=== PATIENT | female | born 1955 | race Caucasian/White ===

== ENCOUNTER 2019-04-14 10:32 | Inpatient (IN) | payer OTHER, BC ==
[2019-04-14] MEDS ORDERED: AZITHROMYCIN 500 MG TABLET PO ONE (10:52)
[2019-04-14] MEDS ORDERED: ALBUTEROL (0.5% CONCENTRATED) 2.5 MG/0.5 ML VIAL.NEB INH ONE ×2 (10:52→12:11)
[2019-04-14] MEDS ORDERED: METHYLPREDNISOLONE PF 125MG/VIAL IVP ONE (10:52)
--- NOTE | 2019-04-14 10:56 | Emergency Department Record ---
History of Present Illness - General Chief Complaint: Shortness of breath Stated Complaint: RESPIRATORY ISSUES, ASTHMA Time Seen by Provider: 04/14/19 10:47 Source: Patient, Family Mode of Arrival: Ambulatory Limitations: No limitations - History of Present Illness Initial Comments: 63 yo female presents with cough, wheezing, shortness of breath, fevers and productive sputum. The onset was about 2 weeks ago. She traveled to [place] during this duration. No leg pain or swelling. The sputum is yellow. She has seen some streaks of blood at times. The last fever was 2 days ago. She is an asthmatic. She completed steroids on the . She is not a smoker. She had diarrhea for two days that resolved. No chest pain. MD Complaint: "Asthma attack", Cough, Shortness of breath Onset/Timin -: Days(s) Radiation: Other Quality: Other Consistency: Constant Improves With: Nothing Worsens With: Nothing Known History Of: Asthma Context: Recent URI, Recent travel Associated Symptoms: Orthopnia, Sputum production Treatments Prior to Arrival: None - Related Data Home Medications Medication Instructions Recorded Confirmed Last Taken Albuterol Sulfate [Proair Hfa] 1 - 2 puff IH .EVERY 4-6 HOURS PRN 04/14/19 04/14/19 04/14/19 Aspirin [Aspir-Low] 81 mg PO DAILY 04/14/19 04/14/19 04/14/19 Cholecalciferol (Vitamin D3) 2,000 unit PO DAILY 04/14/19 04/14/19 04/14/19 [Vitamin D3] Magnesium Oxide [Magnesium] 750 mg PO DAILY 04/14/19 04/14/19 04/14/19 Allergies Allergy/AdvReac Type Severity Reaction Status Date / Time No Known Drug Allergies Allergy Verified 12/14/15 06:27 Travel Screening - Travel/Exposure Within Last 30 Days Have you traveled within the last 30 days?: Yes Location Detail:: [place] - Travel/Exposure Within Last Year Have you traveled outside the [place] in the last year?: Yes Location Detail:: [place] - Travel Symptoms Symptom Screening: None Review of Systems Constitutional: Reports: Chills, Fever Eyes: Denies: Eye discharge ENT: Reports: Congestion, Throat pain Respiratory: Reports: Cough, Dyspnea, Wheezes Cardiovascular: Denies: Chest pain, Palpitations, Syncope Endocrine: Denies: Fatigue, Polydipsia, Polyuria Gastrointestinal: Reports: As per HPI, Diarrhea. Denies: Abdominal pain, Nausea, Vomiting Genitourinary: Denies: Dysuria, Urgency Musculoskeletal: Denies: Arthralgia, Back pain, Myalgia Skin: Denies: Bruising, Change in color, Rash Neurological: Denies: Headache Psychiatric: Denies: Anxiety Hematological/Lymphatic: Denies: Easy bleeding, Easy bruising Past Medical History - SOCIAL HISTORY Smoking Status: Never smoker Alcohol Use: None Drug Use: None - RESPIRATORY Hx Respiratory Disorders: Yes Hx Asthma: Yes - CARDIOVASCULAR Hx Cardio Disorders: Yes Hx Cardiac Cath: Yes (05/2015) Hx CHF: No Hx Irregular Heartbeat: Yes - NEURO Hx Neuro Disorders: No - GI Hx GI Disorders: Yes Hx Ulcer: Yes - Hx Genitourinary Disorders: Yes Hx Kidney Stones: Yes - ENDOCRINE Hx Endocrine Disorders: Yes Hx Thyroid Disease: Yes (Hypothyroid) - MUSCULOSKELETAL Hx Musculoskeletal Disorders: No - PSYCH Hx Psych Problems: No - HEMATOLOGY/ONCOLOGY Hx Hematology/Oncology Disorders: Yes Hx Cancer: Yes Hx Chemotherapy: No Hx Radiation Therapy: No Family Medical History Any Significant Family History?: No Hx Cancer: Father, Mother, Grandparents *Cancer Comment: Lung Hx Heart Disease: Father, Grandparents Hx HTN: Mother Hx Resp Disorders: Father, Mother Physical Exam - General General Appearance: Alert, Oriented x3, Cooperative, No acute distress Limitations: No limitations - Head Head exam: Atraumatic, Normal inspection - Eye Eye exam: Normal appearance, PERRL. negative: Conjunctival injection, Scleral icterus - ENT ENT exam: Normal exam, Mucous membranes moist, Normal orophraynx Ear exam: Normal external inspection Nasal Exam: Discharge Mouth exam: Normal external inspection Teeth exam: Normal inspection - Neck Neck exam: Normal inspection. negative: Lymphadenopathy - Respiratory Respiratory exam: Decreased breath sounds, Prolonged expiratory, Wheezes. negative: Normal lung sounds bilaterally, Respiratory distress, Stridor - Cardiovascular Cardiovascular Exam: Regular rate, Normal rhythm, Normal heart sounds Peripheral Pulses: 2+: Radial (R), Radial (L) - GI/Abdominal GI/Abdominal exam: Soft. negative: Tenderness - Rectal Rectal exam: Deferred - exam: Deferred - Extremities Extremities exam: Normal inspection. negative: Calf tenderness, Pedal edema, Tenderness - Back Back exam: Denies: CVA tenderness (R), CVA tenderness (L) - Neurological Neurological exam: Alert, Oriented X3 - Psychiatric Psychiatric exam: Normal affect, Normal mood - Skin Skin exam: Dry, Intact, Normal color, Warm Course Vital Signs 04/14/19 10:36 Temperature 97.8 F Pulse Rate 84 Respiratory 16 Rate Blood Pressure 123/84 Pulse Ox 95 - Reevaluation(s) Reevaluation #1: The current symptoms are consistent with acute bronchits vs pneumonia with acute exacerbation of asthma with her productive sputum and significant wheezing, and fever. She has had travel recently. PE is low suspicion based on her clinical presentation. 04/14/19 11:16 The CBC was reviewed WC is 3.8 The BMP is normal 04/14/19 12:12 The CXR demonstrated prominent perihilar interstitial changes. No effusion or infiltrate On recheck she is still diffusely wheezing Repeat nebulized treatment ordered 04/14/19 12:13 04/14/19 13:16 After the repeat nebulized treatment her wheezing persists diffusely Saturations range from upper 80's to mid 90's I recommend observation overnight for steriods, antibiotics, monitoring, and scheduled treatments. 04/14/19 13:24 The case was discussed with Sherrie Alexander MANAGER NURSING for admission Medical Decision Making - Lab Data Result diagrams: 04/14/19 10:54 04/14/19 10:54 Disposition Disposition: Admit Clinical Impression: Bronchitis, Asthma exacerbation Decision to Admit: Admit from ER Decision to Admit Date: 04/14/19 Decision to Admit Time: 13:24 Condition: (2) Stable Forms: Patient Portal Access Time of Disposition: 13:24 Quality - Quality Measures Quality Measures: N/A - Blood Pressure Screening Does Patient Have Any of the Following: No Blood Pressure Classification: Pre-Hypertensive BP Reading Systolic Measurement: 123 Diastolic Measurement: 84 Screening for High Blood Pressure: < Pre-Hypertensive BP, F/U Documented > [[id number]] Pre-Hypertensive Follow-up Interventions: Referral to alternative/primary care provider.
[2019-04-14 11:09] LABS: GRAN % 40.1 % (47-80); HEMATOCRIT 39.1 % (35.0-47.0); HEMOGLOBIN 12.2 gm/dl (11.6-16.0); MEAN CELL VOLUME 96.5 fl (81-97); MEAN CORPUSCULAR HEMOGLOBIN 30.1 pg (27-33); MEAN CORPUSCULAR HGB CONC 31.2 g/dl (32-36); MEAN PLATELET VOLUME 8.9 fl (7.4-10.4); PLATELET COUNT 226 K/uL (130-400); RED BLOOD COUNT 4.05 M/uL (3.80-5.40); RED CELL DISTRIBUTION WIDTH 15.7 % (11.5-14.5); WHITE BLOOD COUNT W/O DIFF 3.8 K/uL (4.2-12.2)
[2019-04-14 11:10] LABS: BASO % 1.1 % (0-6); EOS % 5.9 % (0-6); LYMPH % 40.4 % (16-45); MONO % 12.5 % (0-9)
[2019-04-14 11:17] LABS: INFLUENZA A NEGATIVE (NEGATIVE); INFLUENZA B NEGATIVE (NEGATIVE)
--- NOTE | 2019-04-14 12:03 | RADIOLOGY REPORT ---
EXAMINATION: Two View Chest Radiographs EXAM DATE: 04/14/2019 11:27 AM TECHNIQUE: Frontal and lateral views INDICATION: wheezing, cough COMPARISON: None ENCOUNTER: Not applicable FINDINGS: Cardiomediastinal structures unremarkable. Prominent bilateral perihilar interstitial change may be c hronic. Comparison with previous radiographs and/or follow-up study recommended. No pulmonary consoli dation. No pneumothorax or pleural effusion. IMPRESSION: Prominent bilateral perihilar interstitial change may be chronic. Comparison with previous radiograph s and/or follow-up study recommended NOTE: There is a follow-up recommendation in this report. Dictated by: Christopher Lilly MD on 04/14/2019 11:58 AM. .
[2019-04-14] MEDS ORDERED: ALBUTEROL SULFATE (0.083%) 2.5 MG/3 ML NEB INH PRN (13:47)
[2019-04-14] MEDS ORDERED: BENZONATATE 100 MG CAPSULE PO PRN (14:05)
[2019-04-14] MEDS: METHYLPREDNISOLONE PF 125MG/VIAL IVP SCH ×2 (14:38→21:21)
[2019-04-14] MEDS: CEFTRIAXONE SODIUM 1 GM in 0.9 % SODIUM CHLORIDE 100ML 100 ML IVPB SCH (14:56)
[2019-04-14] MEDS: IPRATROPIUM/ALBUTEROL (0.5MG/3MG) NEB INH SCH ×3 (14:57→22:37)
[2019-04-14] MEDS: BREO (FLUTICASONE/VILANTEROL) 200MCG/25MCG INHALER INH SCH (14:57)
[2019-04-14] MEDS: GUAIFENESIN 600 MG TABCR PO SCH (21:21)
[2019-04-14] MEDS: MONTELUKAST SODIUM 10MG TABLET PO SCH (21:21)
[2019-04-15] MEDS: GUAIFENESIN/D-METH. 10 ML UDC PO PRN ×2 (02:55→22:05)
[2019-04-15] MEDS: ACETAMINOPHEN 325 MG TAB PO PRN (02:55)
[2019-04-15] MEDS: METHYLPREDNISOLONE PF 125MG/VIAL IVP SCH ×3 (06:55→22:11)
[2019-04-15] MEDS: IPRATROPIUM/ALBUTEROL (0.5MG/3MG) NEB INH SCH ×6 (08:21→21:40)
[2019-04-15] MEDS: ASPIRIN 81 MG TABEC PO SCH (09:10)
[2019-04-15] MEDS: GUAIFENESIN 600 MG TABCR PO SCH ×2 (09:10→22:07)
[2019-04-15] MEDS: CHOLECALCIFEROL 1,000 UNIT TABLET PO SCH (09:11)
[2019-04-15] MEDS: MAGNESIUM OXIDE 400 MG TABLET PO SCH (09:11)
[2019-04-15] MEDS: AZITHROMYCIN 500 MG TABLET PO SCH (09:11)
[2019-04-15] MEDS: ATORVASTATIN 20 MG TABLET PO SCH ×2 (09:14→22:10)
[2019-04-15] MEDS: METOPROLOL SUCC 50 MG TABLET PO SCH (09:16)
[2019-04-15] MEDS ORDERED: FUROSEMIDE IV 20MG/2ML VIAL IVP ONE (09:34)
[2019-04-15] MEDS ORDERED: POTASSIUM CHLORIDE 10 MEQ TAB PO ONE (09:35)
[2019-04-15] MEDS ORDERED: LEVOTHYROXINE SODIUM 150 MCG TABLET PO SCH (10:00)
[2019-04-15] MEDS: BREO (FLUTICASONE/VILANTEROL) 200MCG/25MCG INHALER INH SCH (10:11)
--- NOTE | 2019-04-15 12:13 | History & Physical ---
History of Present Illness - Date of Service Date of Service for History & Physical: 04/14/19 - History of Present Illness Admitting Diagnosis: bronchitis with acute ashtma exacerbation History of Present Illness: 63 yo female presented to [facility] ER for asthma exacerbation and shortness of breath. Pt reports she was sick when she started her trip to [facility] to see her daughter on a mission trip. She was on azthiromax and prednisone but got worse while traveling and then significantly worse after the steroids stopped. Pt given alb neb tx with little resolve on wheezing and labored breathing. Given zithromax and Rocephin in ER. CXR shows corbin perihilar intersitial changes (pt has been worked up for Sarcoidosis previously with neg results), no acute process Labs and vitals as documented -Admit for asthma exacerbation and bronchitis 04/14/19 10:36 Temperature 97.8 F Pulse Rate 84 Respiratory 16 Rate Respiratory WNL Depth Respiratory Dyspneic Effort Respiratory WNL Pattern Blood Pressure 123/84 Pulse Ox 95 04/14/19 04/14/19 04/14/19 10:54 10:54 10:54 WBC 3.8 L RBC 4.05 Hgb 12.2 Hct 39.1 MCV 96.5 MCH 30.1 MCHC 31.2 L RDW 15.7 H Plt Count 226 MPV 8.9 Absolute Neutrophils Not Reportable Sodium 142 Potassium 4.2 Chloride 106 Carbon Dioxide 27.0 Anion Gap 9.0 BUN 14 Creatinine 1.0 H Estimated GFR 60 Random Glucose 129 H Calcium 9.1 Influenza Type A Ag Negative Influenza Type B Ag Negative 04/14/19 Pt resting, sitting EOB. Pt in mild resp distress after returning from restroom and changing into gown. Able to talk in complete sentences but some supraclavicular retractions noted. Lung sounds, corbin wheezing with expiration. Heart RRR, +1-2 pitting edema lower legs noted but pt reports 33 hr flight home from [facility]. Cough is not productive, no hemoptosis. Pt was sick before leaving for [facility]. POC continue abx, steroids, alb neb tx and monitor O2 sats. PCP Hema Reddy Travel Screening - Travel/Exposure Within Last 30 Days Have you traveled within the last 30 days?: Yes Location Detail:: [facility] 04/05/19-04/13/19 - Travel/Exposure Within Last Year Have you traveled outside the [place] in the last year?: Yes Location Detail:: layover in [facility] - Additonal Travel Details Have you been exposed to anyone with a communicable illness?: No Exposure Details:: unknown, but possible - Travel Symptoms Symptom Screening: None Review of Systems Constitutional: Reports: Chills, Fever Eyes: Denies: Eye discharge ENT: Reports: Congestion, Throat pain Respiratory: Reports: Cough, Dyspnea, Wheezes Cardiovascular: Denies: Chest pain, Palpitations, Syncope Endocrine: Denies: Fatigue, Polydipsia, Polyuria Gastrointestinal: Reports: As per HPI, Diarrhea. Denies: Abdominal pain, Nausea, Vomiting Genitourinary: Denies: Dysuria, Urgency Musculoskeletal: Denies: Arthralgia, Back pain, Myalgia Skin: Denies: Bruising, Change in color, Rash Neurological: Denies: Headache Psychiatric: Denies: Anxiety Hematological/Lymphatic: Denies: Easy bleeding, Easy bruising Past Medical History - SOCIAL HISTORY Smoking Status: Never smoker Alcohol Use: Rare Alcohol Use Comment: 2x per year Drug Use: None - RESPIRATORY Hx Respiratory Disorders: Yes Hx Asthma: Yes - CARDIOVASCULAR Hx Cardio Disorders: Yes Hx Cardiac Cath: Yes (05/2015) Hx CHF: No Hx Irregular Heartbeat: Yes (Underwent ablation to correct issue 2016) - NEURO Hx Neuro Disorders: No - GI Hx GI Disorders: Yes Hx Ulcer: Yes - Hx Genitourinary Disorders: Yes Hx Kidney Stones: Yes - ENDOCRINE Hx Endocrine Disorders: Yes Hx Thyroid Disease: Yes (Hypothyroid) - MUSCULOSKELETAL Hx Musculoskeletal Disorders: No - PSYCH Hx Psych Problems: No - HEMATOLOGY/ONCOLOGY Hx Hematology/Oncology Disorders: Yes Hx Cancer: Yes (Breast 2000) Hx Chemotherapy: No Hx Radiation Therapy: No Family Medical History Any Significant Family History?: No Hx Cancer: Father, Mother, Grandparents *Cancer Comment: Lung Hx Heart Disease: Father, Grandparents Hx HTN: Mother Hx Resp Disorders: Father, Mother H&P Meds/Allergies - Allergies Allergies: Allergies Allergy/AdvReac Type Severity Reaction Status Date / Time No Known Drug Allergies Allergy Verified 12/14/15 06:27 - Home Medications Home Medications Medication Instructions Recorded Confirmed Last Taken Albuterol Sulfate [Proair Hfa] 1 - 2 puff IH .EVERY 4-6 HOURS PRN 04/14/19 04/14/19 04/14/19 Aspirin [Aspir-Low] 81 mg PO DAILY 04/14/19 04/14/19 04/14/19 Cholecalciferol (Vitamin D3) 2,000 unit PO DAILY 04/14/19 04/14/19 04/14/19 [Vitamin D3] Magnesium Oxide [Magnesium] 750 mg PO DAILY 04/14/19 04/14/19 04/14/19 - Active Medications Active Medications: Current Medications Acetaminophen (Tylenol 325mg) 650 mg PO Q6H PRN PRN Reason: PAIN - MILD(1-4)/FEVER Last Admin: 04/15/19 02:55 Dose: 650 mg Documented by: Albuterol Sulfate (Albuterol Sulfate) 2.5 mg INH RESP.Q2H PRN PRN Reason: DIFFICULTY IN BREATHING Albuterol/Ipratropium (Duoneb) 3 ml INH RESP.Q4H.[facility] Last Admin: 04/15/19 10:11 Dose: 3 ml Documented by: Aspirin (Ecotrin (Ec)) 81 mg PO DAILY [facility] Last Admin: 04/15/19 09:10 Dose: 81 mg Documented by: Atorvastatin Calcium (Lipitor) 40 mg PO QHS [facility] Last Admin: 04/15/19 09:14 Dose: 40 mg Documented by: Azithromycin (Zithromax) 500 mg PO DAILY [facility] Last Admin: 04/15/19 09:11 Dose: 500 mg Documented by: Benzonatate (Tessalon) 100 mg PO TID PRN PRN Reason: COUGH Guaifenesin (Robitussin Dm) 10 ml PO Q6H PRN PRN Reason: COUGH Last Admin: 04/15/19 02:55 Dose: 10 ml Documented by: Guaifenesin (Mucinex) 600 mg PO BID [facility] Last Admin: 04/15/19 09:10 Dose: 600 mg Documented by: Ceftriaxone Sodium 1 gm/ (Sodium Chloride) 100 mls @ 100 mls/hr IVPB Q24H [facility] Stop: 04/19/19 13:48 Last Infusion: 04/14/19 15:26 Dose: Infused Documented by: Levothyroxine Sodium (Synthroid) 150 mcg PO DAILY [facility] Last Admin: 04/15/19 09:11 Dose: 150 mcg Documented by: Magnesium Oxide (Mag Ox) 800 mg PO DAILY [facility] Last Admin: 04/15/19 09:11 Dose: 800 mg Documented by: Methylprednisolone Sodium Succinate (Solu-Medrol) 60 mg IVP Q8H [facility] Last Admin: 04/15/19 06:55 Dose: 60 mg Documented by: Metoprolol Succinate (Toprol Xl) 25 mg PO DAILY [facility] Last Admin: 04/15/19 09:16 Dose: 25 mg Documented by: Montelukast Sodium (Singulair) 10 mg PO QHS [facility] Last Admin: 04/14/19 21:21 Dose: 10 mg Documented by: Vitamin D (Vitamin D3) 2,000 unit PO DAILY [facility] Last Admin: 04/15/19 09:11 Dose: 2,000 unit Documented by: Physical Exam - Vital Signs Vital Signs: Vital Signs - Last 24 Hrs Temp Pulse Pulse Resp BP Pulse Ox 04/15/19 10:17 72 18 91 L 04/15/19 10:11 71 18 95 04/15/19 08:51 18 04/15/19 08:23 79 18 97 04/15/19 05:00 98.2 F 85 18 123/62 95 04/14/19 22:37 82 16 95 04/14/19 21:47 98.3 F 101 H 18 122/71 94 L 04/14/19 21:00 16 04/14/19 18:51 107 H 18 98 04/14/19 14:57 89 18 96 04/14/19 14:29 16 04/14/19 13:47 97.8 F 99 H 16 137/86 92 L 04/14/19 12:16 86 16 114/65 98 - General General Appearance: Alert, Oriented x3, Cooperative, No acute distress Limitations: No limitations - Head Head exam: Atraumatic, Normal inspection - Eye Eye exam: Normal appearance, PERRL. negative: Conjunctival injection, Scleral icterus - ENT ENT exam: Normal exam, Mucous membranes moist, Normal orophraynx Ear exam: Normal external inspection Nasal Exam: Discharge Mouth exam: Normal external inspection Teeth exam: Normal inspection - Neck Neck exam: Normal inspection. negative: Lymphadenopathy - Respiratory Respiratory exam: Decreased breath sounds, Prolonged expiratory, Wheezes. negative: Normal lung sounds bilaterally, Respiratory distress, Stridor - Cardiovascular Cardiovascular Exam: Regular rate, Normal rhythm, Normal heart sounds Peripheral Pulses: 2+: Radial (R), Radial (L) - GI/Abdominal GI/Abdominal exam: Soft. negative: Tenderness - Rectal Rectal exam: Deferred - exam: Deferred - Extremities Extremities exam: Normal inspection. negative: Calf tenderness, Pedal edema, Tenderness - Back Back exam: Denies: CVA tenderness (R), CVA tenderness (L) - Neurological Neurological exam: Alert, Oriented X3 - Psychiatric Psychiatric exam: Normal affect, Normal mood - Skin Skin exam: Dry, Intact, Normal color, Warm Results - Labs Result Diagrams: 04/14/19 10:54 04/14/19 10:54 - Imaging and Cardiology Chest x-ray Status: Report reviewed VTE H&P Assessment - Risk for VTE Risk for VTE: Yes Risk Level: Moderate Risk Assessment Date: 04/15/19 Risk Assessment Time: 12:07 VTE Orders Placed or Will Be Placed: Yes Plan - Detailed Diagnosis and Plan (1) Asthma exacerbation Current Visit: Yes Status: Acute Base Code: J45.901 - UNSPECIFIED ASTHMA WITH (ACUTE) EXACERBATION Comment: 04/14/19 -pt wheezing, labored inspiratory respirations -able to talk in completed sentences but has had several breathing treatments prior to arrival to the floor -admit for steroids, neb tx, abx -pt reports that she has well controlled asthma, using singulair daily and not needing alb HFA for months at a time (2) Bronchitis Current Visit: Yes Status: Acute Base Code: J40 - BRONCHITIS, NOT SPECIFIED ACUTE OR CHRONIC Comment: 04/14/19 -Pt has been sick for over 1 week, traveled to [facility] while sick and began to get worse. Had zpak and prednisone while traveling and then after returning, steroids were done and pt became significantly worse after that -continue azithromax and adding Rocephin 1gm q24 hrs, continue steroids and alb neb tx -supplement O2 as needed, pt had fluctuating O2 sats in ER -if not improvement, will do CTA to r/o PE r/t recent long travel (3) DVT prophylaxis Current Visit: Yes Status: Acute Base Code: Z29.9 - ENCOUNTER FOR PROPHYLACTIC MEASURES, UNSPECIFIED Comment: 04/14/19 -start lovenox tomorrow if no d/c (4) Full code status Current Visit: Yes Status: Acute Base Code: Z78.9 - OTHER SPECIFIED HEALTH STATUS Comment: 04/14/19 full code status
--- NOTE | 2019-04-15 15:24 | Physician Progress Note ---
Subjective - Date Date of Physician Progress Note: 04/16/19 - Subjective Subjective Comment: 04/16/19 pt reports improved activity tolerance, still having dry cough with wheezing but not as freq. as the past few days Objective - Vital Signs Vital Signs: Vital Signs - Last 24 Hrs Temp Pulse Pulse Resp BP Pulse Ox 04/15/19 14:23 83 18 96 04/15/19 10:17 72 18 91 L 04/15/19 10:11 71 18 95 04/15/19 08:51 18 04/15/19 08:23 79 18 97 04/15/19 05:00 98.2 F 85 18 123/62 95 04/14/19 22:37 82 16 95 04/14/19 21:47 98.3 F 101 H 18 122/71 94 L 04/14/19 21:00 16 04/14/19 18:51 107 H 18 98 - General General Appearance: Alert, Oriented x3, Cooperative, No acute distress Limitations: No limitations - Head Head exam: Atraumatic, Normal inspection - Eye Eye exam: Normal appearance, PERRL. negative: Conjunctival injection, Scleral icterus - ENT ENT exam: Normal exam, Mucous membranes moist, Normal orophraynx Ear exam: Normal external inspection Nasal Exam: Discharge Mouth exam: Normal external inspection Teeth exam: Normal inspection - Neck Neck exam: Normal inspection. negative: Lymphadenopathy - Respiratory Respiratory exam: Decreased breath sounds, Prolonged expiratory, Wheezes. negative: Normal lung sounds bilaterally, Respiratory distress, Stridor - Cardiovascular Cardiovascular Exam: Regular rate, Normal rhythm, Normal heart sounds Peripheral Pulses: 2+: Radial (R), Radial (L) - GI/Abdominal GI/Abdominal exam: Soft. negative: Tenderness - Rectal Rectal exam: Deferred - exam: Deferred - Extremities Extremities exam: Normal inspection. negative: Calf tenderness, Pedal edema, Tenderness - Back Back exam: Denies: CVA tenderness (R), CVA tenderness (L) - Neurological Neurological exam: Alert, Oriented X3 - Psychiatric Psychiatric exam: Normal affect, Normal mood - Skin Skin exam: Dry, Intact, Normal color, Warm Assessment and Plan - Assessment and Plan (1) Asthma exacerbation Current Visit: Yes Status: Acute Base Code: J45.901 - UNSPECIFIED ASTHMA WITH (ACUTE) EXACERBATION Comment: 04/16/19 -pt still coughing, whezing, sats more stable -CTA was not completed r/t staff unable to placed IV last night, PLANNER SCHEDULER placed IV with US this AM, awaiting CTA to r/o PE, if neg pt can d/c today 04/15/19 pt reports continued wheezing, sats remain unstable with nursing reporting drops into the high 80s at times CTA ordered to r/o PE as pt has recently traveled to/from [place] within the week 04/14/19 -pt wheezing, labored inspiratory respirations -able to talk in completed sentences but has had several breathing treatments prior to arrival to the floor -admit for steroids, neb tx, abx -pt reports that she has well controlled asthma, using singulair daily and not needing alb HFA for months at a time (2) Bronchitis Current Visit: Yes Status: Acute Base Code: J40 - BRONCHITIS, NOT SPECIFIED ACUTE OR CHRONIC Comment: 04/16/19 -transition to PO abx, if CTA neg d/c today 04/15/19 -pt improving with IV abx and steroids. continue to monitor 04/14/19 -Pt has been sick for over 1 week, traveled to [facility] while sick and began to get worse. Had zpak and prednisone while traveling and then after returning, steroids were done and pt became significantly worse after that -continue azithromax and adding Rocephin 1gm q24 hrs, continue steroids and alb neb tx -supplement O2 as needed, pt had fluctuating O2 sats in ER -if not improvement, will do CTA to r/o PE r/t recent long travel (3) DVT prophylaxis Current Visit: Yes Status: Acute Base Code: Z29.9 - ENCOUNTER FOR PROPHYLACTIC MEASURES, UNSPECIFIED Comment: 04/16/19 -start lovenox tomorrow if no d/c (4) Full code status Current Visit: Yes Status: Acute Base Code: Z78.9 - OTHER SPECIFIED HEALTH STATUS Comment: 04/16/19 full code status Results - Labs Result Diagrams: 04/16/19 06:40 04/16/19 06:40 DVT/PE Assessment - Risk for VTE Risk for VTE: No Risk Level: Moderate Risk Assessment Date: 04/15/19 Risk Assessment Time: 12:07 VTE Orders Placed or Will Be Placed: Yes - Active Medicaitons Current Medications: Current Medications Acetaminophen (Tylenol 325mg) 650 mg PO Q6H PRN PRN Reason: PAIN - MILD(1-4)/FEVER Last Admin: 04/15/19 02:55 Dose: 650 mg Documented by: Albuterol Sulfate (Albuterol Sulfate) 2.5 mg INH RESP.Q2H PRN PRN Reason: DIFFICULTY IN BREATHING Last Admin: 04/15/19 14:20 Dose: 2.5 mg Documented by: Albuterol/Ipratropium (Duoneb) 3 ml INH RESP.Q4H.[facility] Last Admin: 04/15/19 10:11 Dose: 3 ml Documented by: Aspirin (Ecotrin (Ec)) 81 mg PO DAILY [facility] Last Admin: 04/15/19 09:10 Dose: 81 mg Documented by: Atorvastatin Calcium (Lipitor) 40 mg PO QHS [facility] Last Admin: 04/15/19 09:14 Dose: 40 mg Documented by: Azithromycin (Zithromax) 500 mg PO DAILY [facility] Last Admin: 04/15/19 09:11 Dose: 500 mg Documented by: Benzonatate (Tessalon) 100 mg PO TID PRN PRN Reason: COUGH Enoxaparin Sodium (Lovenox) 40 mg SQ DAILY [facility] Guaifenesin (Robitussin Dm) 10 ml PO Q6H PRN PRN Reason: COUGH Last Admin: 04/15/19 02:55 Dose: 10 ml Documented by: Guaifenesin (Mucinex) 600 mg PO BID [facility] Last Admin: 04/15/19 09:10 Dose: 600 mg Documented by: Ceftriaxone Sodium 1 gm/ (Sodium Chloride) 100 mls @ 100 mls/hr IVPB Q24H [facility] Stop: 04/19/19 13:48 Last Infusion: 04/14/19 15:26 Dose: Infused Documented by: Levothyroxine Sodium (Synthroid) 150 mcg PO DAILY [facility] Last Admin: 04/15/19 09:11 Dose: 150 mcg Documented by: Magnesium Oxide (Mag Ox) 800 mg PO DAILY [facility] Last Admin: 04/15/19 09:11 Dose: 800 mg Documented by: Methylprednisolone Sodium Succinate (Solu-Medrol) 60 mg IVP Q8H [facility] Last Admin: 04/15/19 06:55 Dose: 60 mg Documented by: Metoprolol Succinate (Toprol Xl) 25 mg PO DAILY [facility] Last Admin: 04/15/19 09:16 Dose: 25 mg Documented by: Montelukast Sodium (Singulair) 10 mg PO QHS [facility] Last Admin: 04/14/19 21:21 Dose: 10 mg Documented by: Vitamin D (Vitamin D3) 2,000 unit PO DAILY [facility] Last Admin: 04/15/19 09:11 Dose: 2,000 unit Documented by: JOSE A Plan - Labs Result Diagrams: 04/16/19 06:40 04/16/19 06:40
[2019-04-15] MEDS: CEFTRIAXONE SODIUM 1 GM in 0.9 % SODIUM CHLORIDE 100ML 100 ML IVPB SCH (16:04)
[2019-04-15] MEDS ORDERED: DIPHENHYDRAMINE HCL 25 MG CAPSULE PO PRN (21:35)
[2019-04-15] MEDS: MONTELUKAST SODIUM 10MG TABLET PO SCH (22:09)
[2019-04-16] MEDS: ACETAMINOPHEN 325 MG TAB PO PRN (01:59)
[2019-04-16] MEDS: IPRATROPIUM/ALBUTEROL (0.5MG/3MG) NEB INH SCH ×4 (05:58→18:59)
[2019-04-16] MEDS: METHYLPREDNISOLONE PF 125MG/VIAL IVP SCH (06:24)
[2019-04-16 07:11] LABS: HEMATOCRIT 40.9 % (35.0-47.0); HEMOGLOBIN 12.7 gm/dl (11.6-16.0); MEAN CELL VOLUME 95.3 fl (81-97); MEAN CORPUSCULAR HEMOGLOBIN 29.6 pg (27-33); MEAN CORPUSCULAR HGB CONC 31.1 g/dl (32-36); MEAN PLATELET VOLUME 9.6 fl (7.4-10.4); PLATELET COUNT 310 K/uL (130-400); RED BLOOD COUNT 4.29 M/uL (3.80-5.40); RED CELL DISTRIBUTION WIDTH 15.9 % (11.5-14.5); WHITE BLOOD COUNT W/O DIFF 15.9 K/uL (4.2-12.2)
[2019-04-16 07:29] LABS: BLOOD UREA NITROGEN 22 mg/dL (8-23); CREATININE 0.9 mg/dL (0.5-0.9); EST GLOMERULAR FILTRATION RATE > 60 mL/min; GLUCOSE,RANDOM 152 mg/dL (74-109)
[2019-04-16] MEDS: BREO (FLUTICASONE/VILANTEROL) 200MCG/25MCG INHALER INH SCH (10:00)
[2019-04-16] MEDS ORDERED: CEFTRIAXONE 1GM/50ML BAG 1 GM/50 ML BAG IVPB SCH (10:00)
[2019-04-16] MEDS ORDERED: LEVOTHYROXINE SODIUM 150 MCG TABLET PO SCH (10:00)
[2019-04-16] MEDS ORDERED: ENOXAPARIN 40 MG/0.4 ML SYR SQ SCH (10:00)
[2019-04-16] MEDS: ASPIRIN 81 MG TABEC PO SCH (10:42)
[2019-04-16] MEDS: MAGNESIUM OXIDE 400 MG TABLET PO SCH (10:44)
[2019-04-16] MEDS: GUAIFENESIN 600 MG TABCR PO SCH (10:45)
[2019-04-16] MEDS: METOPROLOL SUCC 50 MG TABLET PO SCH (10:46)
[2019-04-16] MEDS: AZITHROMYCIN 500 MG TABLET PO SCH (10:47)
[2019-04-16] MEDS: CHOLECALCIFEROL 1,000 UNIT TABLET PO SCH (10:47)
[2019-04-16] MEDS ORDERED: CEFDINIR 300 MG CAPSULE PO ONE (12:54)
--- NOTE | 2019-04-16 19:04 | CT ANGIOGRAM REPORT ---
EXAMINATION: CT Angiography of the Thorax EXAM DATE: 04/16/2019 6:40 PM TECHNIQUE: Standard protocol CT angiogram images were obtained through the chest following the admini stration of intravenous contrast. Coronal and sagittal MIP 3-D reformations were performed. IV Contrast: The amount and type of contrast are recorded in the medical record. INDICATION: Low oxygen saturations with ANGELO. COMPARISON: None ENCOUNTER: Not applicable FINDINGS: Pulmonary Artery: No pulmonary embolism is present. Aorta: No thoracic aortic aneurysm or dissection is present. Right Heart Strain: None. Heart : The heart is not enlarged and there is no pericardial effusion. No coronary artery calcifica tion. Mariel and Mediastinum: No lymphadenopathy. Lung Parenchyma: Normal. Central Airways: Normal. Pleural Effusion: None. Upper Abdomen: Unremarkable. Musculoskeletal and Chest Wall: Unremarkable. IMPRESSION: 1. No acute intrathoracic process with no PE or thoracic aortic dissection. 2. The lungs are clear with no evidence of interstitial lung disease. Dictated by: Kian Rosenthal MD on 04/16/2019 6:59 PM. .
--- NOTE | 2019-04-16 19:20 | Discharge Summary ---
Providers Discharge Summary Date: 04/16/19 Date of admission: 04/14/19 13:33 Expected Date of Discharge: 04/16/19 Attending physician: CATARINO GONZALEZ Primary care physician: CRISTI SOTELO M.D. Physical Exam - Vital Signs Vital Signs: Vital Signs - Last 24 Hrs Temp Pulse Pulse Pulse Resp BP Pulse Ox 04/16/19 19:00 77 18 94 L 04/16/19 15:00 78 16 125/80 96 04/16/19 10:09 85 20 04/16/19 10:00 85 20 94 L 04/16/19 09:00 75 18 04/16/19 07:37 97.7 F 75 16 130/74 98 04/16/19 06:00 74 16 95 04/16/19 05:00 97.9 F 99 H 18 117/71 94 L 04/15/19 21:41 81 20 95 04/15/19 21:00 97.8 F 106 H 18 111/72 94 L - General General Appearance: Alert, Oriented x3, Cooperative, No acute distress Limitations: No limitations - Head Head exam: Atraumatic, Normal inspection - Eye Eye exam: Normal appearance, PERRL. negative: Conjunctival injection, Scleral icterus - ENT ENT exam: Normal exam, Mucous membranes moist, Normal orophraynx Ear exam: Normal external inspection Nasal Exam: Discharge Mouth exam: Normal external inspection Teeth exam: Normal inspection - Neck Neck exam: Normal inspection. negative: Lymphadenopathy - Respiratory Respiratory exam: Decreased breath sounds, Prolonged expiratory, Wheezes. negative: Normal lung sounds bilaterally, Respiratory distress, Stridor - Cardiovascular Cardiovascular Exam: Regular rate, Normal rhythm, Normal heart sounds Peripheral Pulses: 2+: Radial (R), Radial (L) - GI/Abdominal GI/Abdominal exam: Soft. negative: Tenderness - Rectal Rectal exam: Deferred - exam: Deferred - Extremities Extremities exam: Normal inspection. negative: Calf tenderness, Pedal edema, Tenderness - Back Back exam: Denies: CVA tenderness (R), CVA tenderness (L) - Neurological Neurological exam: Alert, Oriented X3 - Psychiatric Psychiatric exam: Normal affect, Normal mood - Skin Skin exam: Dry, Intact, Normal color, Warm Hospitalization - Hospitalization Admission Diagnosis: bronchitis with acute ashtma exacerbation - Problem List/Discharge Diagnosis (1) Asthma exacerbation Current Visit: Yes Status: Acute Base Code: J45.901 - UNSPECIFIED ASTHMA WITH (ACUTE) EXACERBATION Comment: 04/16/19 -pt still coughing, whezing, sats more stable -CTA was not completed r/t staff unable to placed IV last night, LEGAL SERVICES MANAGER placed IV with US this AM, awaiting CTA to r/o PE, if neg pt can d/c today CTA neg, home with steroids and alb neb tx q4 hours 04/15/19 pt reports continued wheezing, sats remain unstable with nursing reporting drops into the high 80s at times CTA ordered to r/o PE as pt has recently traveled to/from [facility] within the week 04/14/19 -pt wheezing, labored inspiratory respirations -able to talk in completed sentences but has had several breathing treatments prior to arrival to the floor -admit for steroids, neb tx, abx -pt reports that she has well controlled asthma, using singulair daily and not needing alb HFA for months at a time (2) Bronchitis Current Visit: Yes Status: Acute Base Code: J40 - BRONCHITIS, NOT SPECIFIED ACUTE OR CHRONIC Comment: 04/16/19 -transition to PO abx, if CTA neg d/c today 04/15/19 -pt improving with IV abx and steroids. continue to monitor 04/14/19 -Pt has been sick for over 1 week, traveled to [facility] while sick and began to get worse. Had zpak and prednisone while traveling and then after returning, steroids were done and pt became significantly worse after that -continue azithromax and adding Rocephin 1gm q24 hrs, continue steroids and alb neb tx -supplement O2 as needed, pt had fluctuating O2 sats in ER -if not improvement, will do CTA to r/o PE r/t recent long travel (3) DVT prophylaxis Current Visit: Yes Status: Acute Base Code: Z29.9 - ENCOUNTER FOR PROPHYLACTIC MEASURES, UNSPECIFIED Comment: 04/16/19 -start lovenox tomorrow if no d/c (4) Full code status Current Visit: Yes Status: Acute Base Code: Z78.9 - OTHER SPECIFIED HEALTH STATUS Comment: 04/16/19 full code status - Hospitalization Course Procedures: Imaging and X-Rays 04/14/19 10:52 CHEST 2 VIEWS [RAD] Stat 04/16/19 18:09 CHEST CTA w contrast [CTA] Stat Cardiology Procedures 04/14/19 10:52 Gyroscopic Instrument Tester NOW 04/14/19 13:47 Gyroscopic Instrument Tester .Continuous Abnormal Labs: Abnormal Lab Results 04/14/19 04/14/19 04/16/19 Range/Units 10:54 10:54 06:40 WBC 3.8 L 15.9 H (4.2-12.2) K/uL MCHC 31.2 L 31.1 L (32-36) g/dl RDW 15.7 H 15.9 H (11.5-14.5) % Gran % 40.1 L (47-80) % Neutrophils % 84.0 H (47-80) % Monocytes % 12.5 H (0-9) % Lymphocytes 9.0 L (16-45) % Creatinine 1.0 H (0.5-0.9) mg/dL Random Glucose 129 H (74-109) mg/dL 04/16/19 Range/Units 06:40 WBC (4.2-12.2) K/uL MCHC (32-36) g/dl RDW (11.5-14.5) % Gran % (47-80) % Neutrophils % (47-80) % Monocytes % (0-9) % Lymphocytes (16-45) % Creatinine (0.5-0.9) mg/dL Random Glucose 152 H (74-109) mg/dL Condition at Discharge: (2) Stable Discharge Medications - Discharge Medications Prescriptions: Albuterol Sulfate 0.083% [Neb] [Albuterol Sulfate] 2.5 mg INH Q4H PRN #120 nebulization solution PRN Reason: Difficulty In Breathing Fluticasone/Vilanterol 200/25 [Breo Ellipta 200-25 Mcg INH] 1 puff INH DAILY #1 inhaler Prednisone [Prednisone 20Mg] 40 mg PO DAILYWM #12 tab Prednisone [Prednisone 5Mg] 5 mg PO DAILY #3 tab Home Medications: Ambulatory Orders Atorvastatin Calcium [Lipitor] 40 mg PO DAILY 12/14/15 [Last Taken 04/14/19] Levothyroxine Sodium [Synthroid] 150 mcg PO DAILY 12/14/15 [Last Taken 04/14/19] Metoprolol Succinate [Toprol Xl] 25 mg PO DAILY 12/14/15 [Last Taken 04/14/19] Montelukast Sodium [Singulair] 10 mg PO QHS 12/14/15 [Last Taken 04/14/19] Albuterol Sulfate [Proair Hfa] 1 - 2 puff IH .EVERY 4-6 HOURS PRN 04/14/19 [Last Taken 04/14/19] Aspirin [Aspir-Low] 81 mg PO DAILY 04/14/19 [Last Taken 04/14/19] Cholecalciferol (Vitamin D3) [Vitamin D3] 2,000 unit PO DAILY 04/14/19 [Last Taken 04/14/19] Magnesium Oxide [Magnesium] 750 mg PO DAILY 04/14/19 [Last Taken 04/14/19] Acetaminophen [Tylenol 325Mg] 650 mg PO Q6H PRN tablet 04/16/19 [Last Taken Unknown] Albuterol Sulfate 0.083% [Neb] [Albuterol Sulfate] 2.5 mg INH Q4H PRN #120 nebulization solution 04/16/19 [Last Taken Unknown] Fluticasone/Vilanterol 200/25 [Breo Ellipta 200-25 Mcg INH] 1 puff INH DAILY #1 inhaler 04/16/19 [Last Taken Unknown] Guaifenesin [Mucinex] 600 mg PO BID tabcr 04/16/19 [Last Taken Unknown] Prednisone [Prednisone 20Mg] 40 mg PO DAILYWM #12 tab 04/16/19 [Last Taken Unknown] Prednisone [Prednisone 5Mg] 5 mg PO DAILY #3 tab 04/16/19 [Last Taken Unknown] Discharge Plan - Discharge Instructions Activity at Discharge: Increase Activity as Tolerated Diet at Discharge: Advance to Usual Diet Additional Instructions: OFF WORK 1 WEEK FROM D/C (04/16/19), FOLLOW UP WITH PCP IN 1-2 WEEKS Asthma exacerbation, continue alb breathing treatments q4 hrs as needed for wheezing, shortness of breath Return to ER for shortness of breath that is not resolved with breathing treatments Starting Breo Ellipta, 1 puff daily, rinse your mouth after each use Your CT is negative for PE, still get up and walk every 2-3 hours when traveling Quality Measures - Quality Measures Quality Measures: Documentation of Current Medications in Medical Record, Screening for High Blood Pressure and F/U Documented - Current Medications Quality Measure: Measure #130: Documentation of Current Medications Documentation of Current Medications: <Current Medications Documented/Reviewed> [G8427] - Blood Pressure Screening Quality Measure: Screening for High Blood Pressure and Follow-Up Documented Does Patient Have Any of the Following: No Blood Pressure Classification: Pre-Hypertensive BP Reading Systolic Measurement: 123 Diastolic Measurement: 84 Screening for High Blood Pressure: < Pre-Hypertensive BP, F/U Documented > [G8950] Pre-Hypertensive Follow-up Interventions: Referral to alternative/primary care provider. - Elder Abuse Suspicion Index EASI Reference Information: Lonnie VYAS, Eduardo C, Marian D, Robinson Win.Development and validation of a tool to assist physicians identification of elder abuse: The Elder Abuse Suspicion Index (EASI ). Journal of Elder Abuse and Neglect, 2008; 20 (3): 276-300.
[2019-04-17] MEDS ORDERED: PREDNISONE 20 MG TAB PO SCH (08:00)
[2019-04-17] MEDS ORDERED: METOPROLOL SUCC 25 MG TAB.ER PO SCH (10:00)
== END 2019-04-16 20:00 | disposition home or self-care (01) | DRG 202 ==
LOC: ER 10:32 → OBSVTOIN 13:33 → MEDSURG 13:33
PROVIDERS: ADMIT Internal Medicine; ATTEND Internal Medicine
DX: J40 Bronchitis, not specified as acute or chronic (principal); J45.901 Unspecified asthma with (acute) exacerbation; E03.9 Hypothyroidism, unspecified; I49.9 Cardiac arrhythmia, unspecified; Z98.61 Coronary angioplasty status; Z87.442 Personal history of urinary calculi; Z85.3 Personal history of malignant neoplasm of breast
CPT/HCPCS: 71046; 71275; 80048; 85025; 85027; 85379; 87400; 94640; 96374; 99223; 99239; 99285; J0696; J1650; J1940; J2930; J7613